=== PATIENT | female | born 1960 ===

== ENCOUNTER 2017-12-19 09:00 | Emergency (ER) | payer OTHER ==
[~2017-12-19] VITALS: Ht 154.9 cm; Wt 86.2 kg
[2017-12-19] MEDS ORDERED: IBUPROFEN600 MG PO (09:18)
[2017-12-19] MEDS ORDERED: NEURONTIN300 MG PO (09:18)
[2017-12-19] MEDS ORDERED: NORFLEX100MG PO (09:18)
[2017-12-19] MEDS ORDERED: DICLOFENAC SODI50 MG PO (12:02)
== END 2017-12-19 14:18 | disposition home or self-care (01) ==
LOC: ER 09:00
DX: M25.512 Pain in left shoulder (principal)